=== PATIENT | male | born 1995 | race Asian ===

== ENCOUNTER → 2017-02-28 | Outpatient (CLI) | payer OTHER ==
--- NOTE | 2017-02-28 12:55 | DIAGNOSTIC IMAGING REPORT ---
ABDOMEN 2VIEW W/PA CHEST RTN CLINICAL HISTORY: T18.5XXA Foreign body in anus and [id number] COMPARISON STUDY: No previous studies for comparison. FINDINGS: The erect chest reveals no free intraperitoneal air. Rectal supine views the abdomen reveal no abnormally dilated loops of large or small bowel. There are no transition zones indicate bowel obstruction. The reported rectal foreign body is not visualized on conventional radiographic imaging. IMPRESSION: No evidence of bowel obstruction. No evidence of free air. The reported rectal foreign body is not visualized on conventional radiographic imaging. Electronically signed by: Alessandro King M.D. 02/28/2017 12:54 PM Dictated Date/Time: 02/28/2017 12:53 PM
== END | disposition home or self-care (01) ==
LOC: C.RAD 12:10
PROVIDERS: ATTEND Physician Assistant
DX: T18.5XXA Foreign body in anus and rectum, initial encounter (principal)

== ENCOUNTER → 2017-02-28 | Outpatient (CLI) | payer OTHER ==
--- NOTE | 2017-02-28 15:40 | DIAGNOSTIC IMAGING REPORT ---
CT SCAN OF THE ABDOMEN AND PELVIS WITH IV CONTRAST CLINICAL HISTORY: Rectal foreign body. COMPARISON STUDY: Abdominal radiographs dated 02/28/2017. TECHNIQUE: Following the IV administration of 115 cc of Optiray 320, CT scan of the abdomen and pelvis is performed from the lung bases to the proximal femora. Images are reviewed in the axial, sagittal, and coronal planes. IV contrast was administered without complication. A dose lowering technique was utilized adhering to the principles of ALARA. The examination is modestly degraded by motion artifact. CT DOSE: 396.54 mGy.cm FINDINGS: Lung bases: The heart is normal in size and without pericardial effusion. The lung bases are clear. Liver: The contrast-enhanced liver is normal in size, contour, and attenuation. There is no intrahepatic biliary ductal dilatation. The hepatic veins and portal veins are patent. Gallbladder: Contracted. Spleen: Normal in size and attenuation. Pancreas: Unremarkable. Adrenal glands: Unremarkable. Kidneys: The contrast enhanced kidneys are normal in size and without hydronephrosis. The kidneys enhance symmetrically. A 9 mm cortical hypodensity in the right kidney likely represents a cyst but is too small for definitive characterization. Abdominal vasculature: The abdominal aorta is normal in course and caliber. Bowel: The small bowel and colon are normal in course and caliber. No radiodense foreign body is identified in the region of the rectosigmoid colon or anus. The appendix is not identified. Peritoneum: There is no intraperitoneal free air or abdominal ascites. Lymphadenopathy: None. Pelvic viscera: The bladder, prostate, and seminal vesicles are normal as visualized. Skeletal structures: No lytic or blastic lesions are seen. IMPRESSION: 1. There are no acute infectious or inflammatory findings in the abdomen or pelvis. 2. No radiodense foreign body is seen in the region of the rectosigmoid colon or anus. Electronically signed by: Pawel Dexter M.D. 02/28/2017 3:38 PM Dictated Date/Time: 02/28/2017 3:34 PM
== END | disposition home or self-care (01) ==
LOC: C.CTS 14:54
PROVIDERS: ATTEND Physician Assistant
DX: T18.5XXA Foreign body in anus and rectum, initial encounter (principal)